=== PATIENT | female | born 1995 | race Caucasian/White ===

== ENCOUNTER 2022-04-14 14:48 | Emergency (ER) | payer SELFPAY ==
[~2022-04-14] VITALS: Ht 162.6 cm; Wt 140.6 kg
[2022-04-14 15:31] LABS: STREPTOCOCCUS GRP A ANTIGEN NEGATIVE (NEGATIVE)
[2022-04-14 15:48] LABS: INFLUENZAE A&B ANTIGEN (RAPID) POSITIVE FLU A (NEGATIVE)
[2022-04-14] MEDS ORDERED: TAMIFLU75 MG PO (15:52)
[2022-04-14] MEDS ORDERED: BENZONATATE200 MG PO (15:52)
[2022-04-14] MEDS ORDERED: IBUPROFEN600 MG PO (15:52)
== END 2022-04-14 16:01 | disposition home or self-care (01) ==
LOC: ER 15:00
DX: R50.9 Fever, unspecified (principal); R05.9 Cough, unspecified; J10.1 Influenza due to other identified influenza virus with other respiratory manifestations
CPT/HCPCS: 83518; 87070; 87400; 99283